=== PATIENT | male | born 1980 | race Caucasian/White ===

== ENCOUNTER → 2016-12-04 | Outpatient (CLI) | payer BC ==
--- NOTE | 2016-12-04 12:31 | DIAGNOSTIC IMAGING REPORT ---
TWO VIEW CHEST CLINICAL HISTORY: Lung nodule. FINDINGS: PA and lateral chest radiographs are compared to study dated 03/22/2015 end 05/07/2011. The cardiomediastinal silhouette is unremarkable. A 1.5 cm right upper lobe pulmonary nodule is hyperdense and likely calcified. This is been present dating back to 2010. The lungs and pleural spaces are otherwise clear. There is no pneumothorax. The bony thorax appears intact. IMPRESSION: 1. No active disease in the chest. 2. A 1.5 cm hyperdense and presumably calcified nodule in the right upper lobe has been present dating back to 2010. Electronically signed by: Navi Monk M.D. 12/04/2016 12:30 PM Dictated Date/Time: 12/04/2016 12:28 PM
== END | disposition home or self-care (01) ==
LOC: C.RAD 12:16
PROVIDERS: ATTEND Internal Medicine Gastroenterology
DX: R91.1 Solitary pulmonary nodule (principal); Z80.1 Family history of malignant neoplasm of trachea, bronchus and lung